=== PATIENT | female | born 1985 | race Caucasian/White ===

== ENCOUNTER → 2016-06-24 | Outpatient (CLI) | payer OTHER, MEDICAID | LOC: FIMAGING 13:36 | PROVIDERS: ATTEND Family Medicine | DX: Z13.820 Encounter for screening for osteoporosis (principal); E88.9 Metabolic disorder, unspecified; Q79.6 Ehlers-Danlos syndromes; M90.80 Osteopathy in diseases classified elsewhere, unspecified site ==

== ENCOUNTER 2016-07-05 11:43 | Emergency (ER) | payer OTHER, MEDICAID ==
--- NOTE | 2016-07-05 12:50 | EDPHY ---
H & P Stated Complaint: bilat flank pain/thinks she has kidney infection Time Seen by Provider: 07/05/16 12:49 HPI/ROS: CHIEF COMPLAINT: back pain HISTORY OF PRESENT ILLNESS: 31-year-old female presents emergency department reporting she feels like she has a kidney infection. Patient complains of bladder spasms that she had on Wednesday that are gone, she states bilateral "kidney pain" that started yesterday. Patient denies nausea or vomiting, no fevers or chills. No diarrhea. She denies abdominal pain. Patient denies trauma , she denies loss of control of her bowel or bladder, no saddle anesthesias. She denies numbness or tingling down her legs or weakness in her legs. REVIEW OF SYSTEMS: A comprehensive 10 point review of systems is otherwise negative aside from elements mentioned in the history of present illness. Source: Patient Exam Limitations: No limitations - Personal History LMP (Females 10-55): IUD In Place Current Tetanus/Diphtheria Vaccine: No - Medical/Surgical History Hx Asthma: No Hx Chronic Respiratory Disease: No Hx Diabetes: No Hx Cardiac Disease: No Hx Renal Disease: No Hx Cirrhosis: No Hx Alcoholism: No Hx HIV/AIDS: No Hx Splenectomy or Spleen Trauma: No Other PMH: Nigel-Danos syndrome, scoliosis, "small lungs", "POTS-postural orthostatic tachycardia syndrome" fibromyalgia chronic fatigue Dr. loza - Social History Smoking Status: Never smoked - Physical Exam Exam: Physical Exam Gen: Alert and Oriented, NAD HEENT: PERRL, moist mucous membranes NECK: no meningismus CV: regular rate and regular rhythm PULM: CTAB, no wheezes ABDOMEN: soft, non tender to palpation, BS present BACK: No CVA tenderness NEURO: Neurologically grossly intact EXTREMITIES: normal appearing SKIN: no rash or break in skin on exposed skin PSYCH: answers questions appropriately. Constitutional: Initial Vital Signs Temperature (C) 36.4 C 07/05/16 11:50 Heart Rate 76 07/05/16 11:50 Respiratory Rate 18 07/05/16 11:50 Blood Pressure 123/89 H 07/05/16 11:50 O2 Sat (%) 96 07/05/16 11:50 O2 Delivery Mode Room Air Allergies/Adverse Reactions: armodafinil [From Nuvigil] Allergy (Severe, Verified 07/05/16 11:47) RASH, LIPS SWELLED cefaclor [From Ceclor] Allergy (Intermediate, Verified 07/05/16 11:47) Hives Home Medications: Medication Instructions Recorded Levonorgestrel [Rin] 1 each IY [id number] 05/24/15 Albuterol [Proventil Inhaler HFA 1 - 2 puffs IH Q4H PRN 11/16/15 (*)] Cromolyn Sodium 07/05/16 Famotidine 07/05/16 Plaquenil 200 mg (*) 07/05/16 Medical Decision Making ED Course/Re-evaluation: IV established, CBC and chemistry panel obtained, urinalysis obtained. CBC, chemistry panel and urinalysis are unremarkable. She has no fever, normal vital signs, is nontoxic appearing. I think the patient's back pain is musculoskeletal related. She was given 15 mg of IV Toradol in the emergency department and will follow up with her primary care doctor as scheduled on Wednesday. She is given return precautions. Differential Diagnosis: The differential diagnosis for the patient's flank pain included but was not limited to musculoskeletal causes, kidney stone, pyelonephritis, shingles, diverticulitis, appendicitis, and aortic aneurysm. - Data Points Laboratory Results: Laboratory Results 07/05/16 14:20 07/05/16 14:20 07/05/16 07/05/16 07/05/16 14:20 14:20 12:45 WBC 5.95 10^3/uL 10^3/uL (3.80-9.50) RBC 5.01 10^6/uL 10^6/uL (4.18-5.33) Hgb 14.8 g/dL g/dL (12.6-16.3) Hct 44.2 % % (38.0-47.0) MCV 88.2 fL fL (81.5-99.8) MCH 29.5 pg pg (27.9-34.1) MCHC 33.5 g/dL g/dL (32.4-36.7) RDW 13.2 % % (11.5-15.2) Plt Count 247 10^3/uL 10^3/uL (150-400) MPV 10.4 fL fL (8.7-11.7) Neut % (Auto) 62.3 % % (39.3-74.2) Lymph % (Auto) 27.4 % % (15.0-45.0) [place] % (Auto) 7.4 % % (4.5-13.0) Eos % (Auto) 1.7 % % (0.6-7.6) Baso % (Auto) 1.0 % % (0.3-1.7) Nucleat RBC Rel Count 0.0 % % (0.0-0.2) Absolute Neuts (auto) 3.71 10^3/uL 10^3/uL (1.70-6.50) Absolute Lymphs (auto) 1.63 10^3/uL 10^3/uL (1.00-3.00) Absolute Monos (auto) 0.44 10^3/uL 10^3/uL (0.30-0.80) Absolute Eos (auto) 0.10 10^3/uL 10^3/uL (0.03-0.40) Absolute Basos (auto) 0.06 10^3/uL 10^3/uL (0.02-0.10) Absolute Nucleated RBC 0.00 10^3/uL 10^3/uL (0-0.01) Immature Gran % 0.2 % % (0.0-1.1) Immature Gran # 0.01 10^3/uL 10^3/uL (0.00-0.10) Sodium 143 mEq/L mEq/L (134-144) Potassium 4.0 mEq/L mEq/L (3.5-5.2) Chloride 106 mEq/L mEq/L (97-110) Carbon Dioxide 26 mEq/l mEq/l (22-31) Anion Gap 11 mEq/L mEq/L (8-16) BUN 9 mg/dL mg/dL (7-23) Creatinine 0.6 mg/dL mg/dL (0.6-1.0) Estimated GFR > 60 Glucose 82 mg/dL mg/dL (70-100) Calcium 9.7 mg/dL mg/dL (8.5-10.4) Urine Color COLORLESS Urine Appearance CLEAR Urine pH 7.0 (5.0-7.5) Ur Specific [place] 1.001 L (1.002-1.030) Urine Protein NEGATIVE (NEGATIVE) Urine Ketones NEGATIVE (NEGATIVE) Urine Blood NEGATIVE (NEGATIVE) Urine Nitrate NEGATIVE (NEGATIVE) Urine Bilirubin NEGATIVE (NEGATIVE) Urine Urobilinogen NEGATIVE EU EU (0.2-1.0) Ur Leukocyte Esterase NEGATIVE (NEGATIVE) Ur Culture Indicated? NOT INDICATED (NI) Urine Glucose NEGATIVE (NEGATIVE) Urine Test 07/05/16 12:45 WBC RBC Hgb Hct MCV MCH MCHC RDW Plt Count MPV Neut % (Auto) Lymph % (Auto) [place] % (Auto) Eos % (Auto) Baso % (Auto) Nucleat RBC Rel Count Absolute Neuts (auto) Absolute Lymphs (auto) Absolute Monos (auto) Absolute Eos (auto) Absolute Basos (auto) Absolute Nucleated RBC Immature Gran % Immature Gran # Sodium Potassium Chloride Carbon Dioxide Anion Gap BUN Creatinine Estimated GFR Glucose Calcium Urine Color Urine Appearance Urine pH Ur Specific [place] Urine Protein Urine Ketones Urine Blood Urine Nitrate Urine Bilirubin Urine Urobilinogen Ur Leukocyte Esterase Ur Culture Indicated? Urine Glucose Urine Test NEGATIVE Departure - Departure Disposition: Home, Routine, Self-Care Clinical Impression: Low back pain Qualifiers: Chronicity: acute Back pain laterality: bilateral Sciatica presence: without sciatica Qualified Code(s): M54.5 - Low back pain Condition: Good Instructions: Acute Low Back Pain (ED), Lower Back Exercises (ED) Additional Instructions: Take 600 mg of ibuprofen every 8 hours with food. Ice or heat whichever feels better, gentle range of motion. Follow-up with your primary care doctor as scheduled on Wednesday, return to the emergency department for loss of control of her bowel or bladder, numbness to your groin, any other questions or concerns. Referrals: Rory Chandler MD [Primary Care Provider] - As per Instructions
[2016-07-05 13:01] LABS: COLOR COLORLESS; LEUKOCYTE ESTERASE,URINE NEGATIVE (NEGATIVE); NITRITE,URINE NEGATIVE (NEGATIVE)
[2016-07-05 13:07] VITALS: RESP 16
[2016-07-05 14:32] LABS: % IMMATURE GRANULYOCYTES 0.2 % (0.0-1.1); ABSOLUTE IMMATURE GRANULOCYTES 0.01 10^3/uL (0.00-0.10); ADD DIFF? NO; ADD MORPH? NO; ADD SCAN? NO; ATYPICAL LYMPHOCYTE FLAG 10 (0-99); FRAGMENT RBC FLAG 0 (0-99); HEMATOCRIT 44.2 % (38.0-47.0); HEMOGLOBIN 14.8 g/dL (12.6-16.3); LEFT SHIFT FLG 0 (0-99); LIPEMIA HEMOLYSIS FLAG 80 (0-99); MEAN CELL HEMOGLOBIN 29.5 pg (27.9-34.1); MEAN CELL HEMOGLOBIN CONCENTR. 33.5 g/dL (32.4-36.7); MEAN CELL VOLUME 88.2 fL (81.5-99.8); MEAN PLATELET VOLUME 10.4 fL (8.7-11.7); PLATELET CLUMPS FLAG 20 (0-99); PLATELET COUNT 247 10^3/uL (150-400); RED BLOOD CELL COUNT 5.01 10^6/uL (4.18-5.33); RED CELL DISTRIBUTION WIDTH 13.2 % (11.5-15.2)
[2016-07-05 14:46] LABS: ANION GAP 11 mEq/L (8-16); CALCIUM 9.7 mg/dL (8.5-10.4); CARBON DIOXIDE 26 mEq/l (22-31); CHLORIDE 106 mEq/L (97-110); CREATININE 0.6 mg/dL (0.6-1.0); GLOMERULAR FILTRATION RATE > 60; GLUCOSE 82 mg/dL (70-100); SODIUM 143 mEq/L (134-144)
[2016-07-05] MEDS ORDERED: KETOROLAC 15 MG/1 ML SDV IVP ONE (14:54)
[2016-07-05 15:10] VITALS: BP 119/83; PULSE 88; TEMP 98.6; O2SAT 95
== END 2016-07-05 15:13 | disposition home or self-care (01) ==
DX: M54.5 Low back pain (principal)
CPT/HCPCS: 96374; J1885

== ENCOUNTER → 2016-10-20 | Outpatient (CLI) | payer OTHER, MEDICAID | LOC: FCPNEURO 20:00 | PROVIDERS: ATTEND Internal Medicine Sleep Medicine | DX: G47.10 Hypersomnia, unspecified (principal) | CPT/HCPCS: 80305 ==

== ENCOUNTER → 2017-03-04 | Outpatient (CLI) | payer MEDICAID | LOC: FIMAGING 13:39 | DX: D89.40 Mast cell activation, unspecified (principal) ==